=== PATIENT | female | born 1985 | race Caucasian/White ===

== ENCOUNTER 2019-06-16 17:16 | Emergency (ER) | payer BC, SELFPAY ==
[2019-06-16 17:30] VITALS: BP 129/79; PULSE 90; RESP 20; TEMP 37.1; O2SAT 98
--- NOTE | 2019-06-16 18:15 | ED.URI ---
HPI - URI/Sore Throat General Chief Complaint: Upper Respiratory Infection Stated Complaint: Cold/Flu symptoms Time Seen by Provider: 06/16/19 18:17 Source: patient and RN notes reviewed Mode of arrival: ambulatory History of Present Illness HPI Narrative: 33-year-old female presents to [facility] with complaints of cough with nasal drainage and headache starting yesterday. Patient states that she has felt feverish and had chills, reports did not take flu shot this year. Patient states that her cough has been nonproductive and she has not experienced any noted wheezes or any shortness of breath. Patient has clear lungs on auscultation with SAO2 98% on room air. She states that she has not taken any OTC medications for her symptoms. MD elicited complaint: cough, rhinorrhea and other (headache) Pertinent past history: asthma Onset (ago): day(s) (1) Consistency: progressively worsening Severity: moderate Pain scale (0-10): 5 Description of mucous: clear Able to tolerate fluids by mouth: Yes Exacerbating factors: exertion and deep breaths Relieving factors: nothing Associated symptoms: fever (states felt feverish), headache, rhinorrhea, nasal congestion and cough Treatments prior to arrival: none Related Data Home Medications Medication Instructions Recorded Confirmed alprazolam 1 mg PO HS PRN 06/16/19 06/16/19 drospirenone-ethinyl estradiol 1 tablet PO DAILY 06/16/19 06/16/19 [Faith (28)] zolpidem 10 mg PO HS PRN 06/16/19 06/16/19 Allergies Allergy/AdvReac Type Severity Reaction Status Date / Time monosodium glutamate Allergy Severe Anaphylactic Verified 06/16/19 17:36 Shock peppermint Allergy Severe Anaphylactic Verified 06/16/19 17:36 Shock Penicillins Allergy Intermediate Anaphylactic Verified 06/16/19 17:36 Shock METOCLOPRAMIDE HCL Allergy Mild Muscle Uncoded 06/16/19 17:36 Spasms AMOXICILLIN TRIHYDRATE Allergy Unknown Unknown Uncoded 06/16/19 17:36 POTASSIUM CLAVULANATE Allergy Unknown Unknown Uncoded 06/16/19 17:36 Review of Systems Review of Systems: Narrative: CONSTITUTIONAL Reports feverish, chills, or sweats. EYES: Denies visual changes, redness, or discharge. ENT:Poitive rhinorrhea, congestion, no sore throat, or otalgia. CARDIOVASCULAR: Denies chest pain, palpitations, or edema. RESPIRATORY: reports dry cough denies any dyspnea. GASTROINTESTINAL: Denies abdominal pain, nausea, vomiting, or diarrhea. GENITOURINARY: Denies dysuria or hematuria. SKIN: Denies rash or itching. MUSCULOSKELETAL: Denies back pain, joint pain, or myalgia. NEUROLOGIC reports headache, no numbness, or weakness. PSYCHIATRIC: Positive history anxiety or depression. All systems reviewed & are unremarkable except as noted in HPI and below PMFSH Past Medical History Medical History (Updated 06/19/19 @ 13:39 by Pushpa Kenny NP) Anxiety and depression Asthma GERD (gastroesophageal reflux disease) IBS (irritable bowel syndrome) Insomnia Migraines Staph infection Social History Social History (Updated 06/19/19 @ 13:30 by Pushpa Kenny NP) Smoking status: Never smoker Living arrangements: with family Gender identity (if verbalized by the patient): Female Comments At time of signature, agree with nursing past medical, surgical, social and family history. There is no relevant family history pertinent to the presenting complaint Exam Narrative: Exam Narrative: GENERAL: Well-appearing, well-nourished, and in no acute distress. HEAD: Normocephalic, atraumatic. EYES: PERRLA and EOMI. ENT: Nares red, clear rhinorrhea no epistaxis. Mucous membranes moist.TM's normal with good light reflex, throat pink with no exudate or lesions, post nasal drainage noted NECK: Supple.no lymphadenopathy CHEST: Clear to auscultation. No respiratory distress.cough SAO2 98% on room air HEART: Regular rate and rhythm. No murmur heard. Normal peripheral pulses. ABDOMEN: Soft, nontender, nondistended, normal active bowel so
== END 2019-06-16 18:45 | disposition home or self-care (01) ==
PROVIDERS: Emergency Provider Registered Nurse
DX: R05 Cough (principal); J06.9 Acute upper respiratory infection, unspecified; J45.909 Unspecified asthma, uncomplicated; K21.9 Gastro-esophageal reflux disease without esophagitis; F41.9 Anxiety disorder, unspecified; Z86.19 Personal history of other infectious and parasitic diseases
CPT/HCPCS: 87804; 99213; G0463

== ENCOUNTER 2019-11-08 16:53 | Emergency (ER) | payer BC, SELFPAY ==
--- NOTE | 2019-11-08 17:01 | ED.URI ---
HPI - URI/Sore Throat General Chief Complaint: Upper Respiratory Infection Stated Complaint: shortness of breath/chest congestion Time Seen by Provider: 11/08/19 17:09 Source: patient and RN notes reviewed Mode of arrival: ambulatory Limitations: no limitations History of Present Illness HPI Narrative: 34-year-old female with history of asthma presents with concern for wheezing, shortness of breath. Reports also 2-day history of postnasal drainage, nasal congestion for which she is taking Sudafed. She reports she used her albuterol inhaler approximately 1 hour ago. Reports the first time she is needed to use albuterol inhaler recently. Reports she is out of her nebulizer and needs a refill on her albuterol inhaler. She denies fever, sore throat, malaise, body aches. MD elicited complaint: nasal congestion and other (Wheezing) Related Data Home Medications Medication Instructions Recorded Confirmed alprazolam 1 mg PO HS PRN 06/16/19 11/08/19 drospirenone-ethinyl estradiol 1 tablet PO DAILY 06/16/19 11/08/19 [Mickeyvi (28)] zolpidem 10 mg PO HS PRN 06/16/19 11/08/19 Allergies Allergy/AdvReac Type Severity Reaction Status Date / Time monosodium glutamate Allergy Severe Anaphylactic Verified 11/08/19 17:09 Shock peppermint Allergy Severe Anaphylactic Verified 11/08/19 17:09 Shock Penicillins Allergy Intermediate Anaphylactic Verified 11/08/19 17:09 Shock METOCLOPRAMIDE HCL Allergy Mild Muscle Uncoded 06/16/19 17:36 Spasms AMOXICILLIN TRIHYDRATE Allergy Unknown Unknown Uncoded 06/16/19 17:36 POTASSIUM CLAVULANATE Allergy Unknown Unknown Uncoded 06/16/19 17:36 Review of Systems Review of Systems: Narrative: CONSTITUTIONAL: Denies malaise, chills, sweats, or fever. EYES: Denies visual changes, redness, or discharge. ENT: Reports rhinorrhea, congestion. Denies sinus pain, otalgia and sore throat. CARDIOVASCULAR: Denies chest pain, palpitations, or edema. RESPIRATORY: Reports cough, wheezing, dyspnea. GASTROINTESTINAL: Denies abdominal pain, nausea, vomiting, diarrhea SKIN: Denies rash or itching. MUSCULOSKELETAL: Denies myalgia. NEUROLOGIC: Denies headache. All systems reviewed & are unremarkable except as noted in HPI and below PMFSH Past Medical History Medical History (Updated 11/08/19 @ 17:14 by Rajani Haro NP) Anxiety and depression Asthma GERD (gastroesophageal reflux disease) IBS (irritable bowel syndrome) Insomnia Migraines Staph infection Social History Social History (Updated 06/19/19 @ 13:30 by Pushpa Kenny NP) Smoking status: Never smoker Gender identity (if verbalized by the patient): Female Comments At time of signature, agree with nursing past medical, surgical, social and family history. There is no relevant family history pertinent to the presenting complaint Exam Narrative: Exam Narrative: GENERAL: Well-appearing, well-nourished, and in no acute distress. HEAD: Normocephalic EYES: PERRLA, conjunctivae clear ENT: Nares clear, turbinates erythematous, clear discharge. Mucous membranes moist. TM pearly rivas with dull light reflex bilaterally; no tragal tenderness. Oropharynx not erythematous without lesions. Tonsils not enlarged and without exudate, no drooling, no hoarseness, no trismus, uvula midline. NECK: Supple. No lymphadenopathy CHEST: Very mild scattered wheeze in the right lower lung, otherwise clear to auscultation, breath sounds equal. No rhonchi, rales, or stridor. No respiratory distress, speaks in full sentences. HEART: Regular rate and rhythm. No murmur heard. SKIN: Warm, dry, no rash. NEURO: Alert and oriented x3. PSYCH: Normal mood and affect Course Course Emergency Course: Patient is aware of diagnosis, understands and agrees to treatment plan. Anticipatory guidance given. Patient agrees to follow-up as directed and is aware of reasons to seek care at the emergency department. Portions of this record may have been created with voice recogni
[2019-11-08 17:03] VITALS: BP 140/80; PULSE 73; RESP 16; TEMP 36.6; O2SAT 100
== END 2019-11-08 17:20 | disposition home or self-care (01) ==
PROVIDERS: Emergency Provider Nurse Practitioner
DX: J45.901 Unspecified asthma with (acute) exacerbation (principal); F41.8 Other specified anxiety disorders; K21.9 Gastro-esophageal reflux disease without esophagitis; K58.9 Irritable bowel syndrome, unspecified
CPT/HCPCS: 99213; G0463

== ENCOUNTER 2020-02-06 09:28 | Emergency (ER) | payer BC, SELFPAY ==
[2020-02-06 09:38] VITALS: BP 131/76; PULSE 84; RESP 16; TEMP 37.1; O2SAT 99
--- NOTE | 2020-02-06 10:22 | ED.GENADULT ---
HPI - General Adult General Chief complaint: Nausea/Vomiting/Diarrhea Stated complaint: vomitting/unable to eat/PT has IBS Time Seen by Provider: 02/06/20 10:03 Source: patient and RN notes reviewed Mode of arrival: ambulatory Limitations: no limitations History of Present Illness HPI narrative: Patient presents today with a 5-day history of complaints of epigastric pain, radiating up the throat, consistent with previous acid reflux symptoms. Reports history of GERD and irritable bowel syndrome. States she is almost out of her omeprazole and is requesting a prescription for more.States that prior to onset of symptoms she had several alcoholic drinks at ladies night , which exacerbated her symptoms. Denies fever, vomiting, diarrhea, constipation, lower abdominal pain. She does report some nausea intermittently. History of ulcers in the past. Related Data Home Medications Medication Instructions Recorded Confirmed alprazolam 1 mg PO HS PRN 06/16/19 02/06/20 drospirenone-ethinyl estradiol 1 tablet PO DAILY 06/16/19 02/06/20 [Gianvi (28)] zolpidem 10 mg PO HS PRN 06/16/19 02/06/20 Allergies Allergy/AdvReac Type Severity Reaction Status Date / Time monosodium glutamate Allergy Severe Anaphylactic Verified 02/06/20 09:56 Shock peppermint Allergy Severe Anaphylactic Verified 02/06/20 09:56 Shock Penicillins Allergy Intermediate Anaphylactic Verified 02/06/20 09:56 Shock METOCLOPRAMIDE HCL Allergy Mild Muscle Uncoded 06/16/19 17:36 Spasms AMOXICILLIN TRIHYDRATE Allergy Unknown Unknown Uncoded 06/16/19 17:36 POTASSIUM CLAVULANATE Allergy Unknown Unknown Uncoded 06/16/19 17:36 Review of Systems Review of Systems: Narrative: CONSTITUTIONAL: Denies body aches, fever, chills, or sweats. EYES: Denies visual changes, redness, or discharge. ENT: Denies rhinorrhea, congestion, sore throat, or otalgia. CARDIOVASCULAR: Denies chest pain, palpitations, or edema. RESPIRATORY: Denies cough or dyspnea. GASTROINTESTINAL: Denies abdominal pain, vomiting, or diarrhea. +Nausea, epigastric pain GENITOURINARY: Denies dysuria or hematuria. SKIN: Denies rash, itching, or wounds. MUSCULOSKELETAL: Denies back pain, joint pain, or myalgia. NEUROLOGIC: Denies headache, numbness, tingling, or weakness. PSYCH: Denies depression or anxiety. [facility] Past Medical History Medical History (Updated 02/06/20 @ 10:24 by Evy Enrique, TRIAL [employer] JUSTICE, ) Anxiety and depression Asthma GERD (gastroesophageal reflux disease) IBS (irritable bowel syndrome) Insomnia Migraines Staph infection Social History Social History (Updated 06/19/19 @ 13:30 by Pushpa Kenny NP) Smoking status: Never smoker Gender identity (if verbalized by the patient): Female Exam Narrative: Exam Narrative: GENERAL: Well-appearing, well-nourished, and in no acute distress. HEAD: Normocephalic, atraumatic. EYES: EOMI. No redness or drainage. Conjunctivae normal. ENT: Mucous membranes pink and moist. NECK: Normal AROM. Supple. No lymphadenopathy. CHEST: No respiratory distress. Clear to auscultation. HEART: Regular rate and rhythm. No murmur appreciated. Normal peripheral pulses. ABDOMEN: Soft, nondistended, normal active bowel sounds. +Epigastric tenderness MUSCULOSKELETAL: No bony tenderness. EXTREMITIES: Normal range of motion. No edema. SKIN: Warm, dry, no rash. Capillary refill normal. Normal skin turgor. NEURO: No focal deficits. Alert and oriented x3. Gait steady. PSYCH: Normal affect. No signs of depression or anxiety. Course Vital Signs Vital signs: Vital Signs Temperature 98.8 F 02/06/20 09:38 Pulse Rate 84 02/06/20 09:38 Respiratory Rate 16 02/06/20 09:38 Blood Pressure 131/76 02/06/20 09:38 Pulse Oximetry 99 02/06/20 09:38 Temperature 98.8 F 02/06/20 09:38 Pulse Rate 84 02/06/20 09:38 Respiratory Rate 16 02/06/20 09:38 Blood Pressure 131/76 02/06/20 09:38 Pulse Oximetry 99 02/06/20 09:3
== END 2020-02-06 10:29 | disposition home or self-care (01) ==
PROVIDERS: Emergency Provider Nurse Practitioner
DX: K21.9 Gastro-esophageal reflux disease without esophagitis (principal); Z86.19 Personal history of other infectious and parasitic diseases; F41.9 Anxiety disorder, unspecified
CPT/HCPCS: 99213; G0463

== ENCOUNTER 2020-03-06 13:58 | Emergency (ER) | payer BC, SELFPAY ==
[2020-03-06 14:06] VITALS: BP 138/88; PULSE 79; RESP 16; TEMP 36.9; O2SAT 98
--- NOTE | 2020-03-06 14:16 | ED.URI ---
HPI - URI/Sore Throat General Chief Complaint: Upper Respiratory Infection Stated Complaint: body aches/cough/chest congestion Time Seen by Provider: 03/06/20 14:17 Source: patient and family History of Present Illness HPI Narrative: Patient presents with a cough for the past 2 days. Patient states she has history of asthma and bronchitis. Patient states she has generalized body aches. No shortness of breath no chest pain. Patient reports using her inhaler prior to arrival. MD elicited complaint: cough Related Data Home Medications Medication Instructions Recorded Confirmed drospirenone-ethinyl estradiol 1 tablet PO DAILY 06/16/19 02/06/20 [Gianvi (28)] alprazolam 2 mg PO HS 03/06/20 03/06/20 fluoxetine [Prozac] 10 mg PO DAILY 03/06/20 03/06/20 Allergies Allergy/AdvReac Type Severity Reaction Status Date / Time monosodium glutamate Allergy Severe Anaphylactic Verified 03/06/20 14:20 Shock peppermint Allergy Severe Anaphylactic Verified 03/06/20 14:20 Shock Penicillins Allergy Intermediate Anaphylactic Verified 03/06/20 14:20 Shock METOCLOPRAMIDE HCL Allergy Mild Muscle Uncoded 06/16/19 17:36 Spasms AMOXICILLIN TRIHYDRATE Allergy Unknown Unknown Uncoded 06/16/19 17:36 POTASSIUM CLAVULANATE Allergy Unknown Unknown Uncoded 06/16/19 17:36 Review of Systems Review of Systems: Narrative: CONSTITUTIONAL: Denies fever, chills, or sweats. EYES: Denies visual changes, redness, or discharge. ENT: Denies rhinorrhea, congestion, sore throat, or otalgia. CARDIOVASCULAR: Denies chest pain, palpitations, or edema. RESPIRATORY: Denies cough or dyspnea. GASTROINTESTINAL: Denies abdominal pain, nausea, vomiting, or diarrhea. GENITOURINARY: Denies dysuria or hematuria. SKIN: Denies rash or itching. MUSCULOSKELETAL: Denies back pain, joint pain, or myalgia. NEUROLOGIC: Denies headache, numbness, or weakness. PSYCHIATRIC: Denies anxiety or depression. [facility] Past Medical History Medical History (Updated 03/06/20 @ 14:24 by TEODORO Connor) Anxiety and depression Asthma GERD (gastroesophageal reflux disease) IBS (irritable bowel syndrome) Insomnia Migraines Staph infection Social History Social History (Updated 06/19/19 @ 13:30 by Pushap Kenny NP) Smoking status: Never smoker Gender identity (if verbalized by the patient): Female Comments At time of signature, agree with nursing past medical, surgical, social and family history. There is no relevant family history pertinent to the presenting complaint Exam Narrative: Exam Narrative: GENERAL: Well-appearing, well-nourished, and in no acute distress. HEAD: Normocephalic, atraumatic. EYES: PERRLA and EOMI. ENT: Nares clear, no rhinorrhea or epistaxis. Mucous membranes moist. NECK: Supple. CHEST: Clear to auscultation. No respiratory distress. HEART: Regular rate and rhythm. No murmur heard. Normal peripheral pulses. ABDOMEN: Soft, nontender, nondistended, normal active bowel sounds. EXTREMITIES: Normal range of motion. No edema. SKIN: Warm, dry, no rash. NEURO: No focal deficits. Alert and oriented x3. [place] Coma Scale Eye Opening: Spontaneous 4 [place] Coma Scale Motor: Obeys Commands 6 [place] Coma Scale Verbal: Oriented 5 Joe Coma Scale Total 15 Course Vital Signs Vital signs: Vital Signs Temperature 36.9 C 03/06/20 14:06 Pulse Rate 79 03/06/20 14:06 Respiratory Rate 16 03/06/20 14:06 Blood Pressure 138/88 03/06/20 14:06 Pulse Oximetry 98 03/06/20 14:06 Temperature 36.9 C 03/06/20 14:23 Pulse Rate 79 03/06/20 14:23 Respiratory Rate 16 03/06/20 14:23 Blood Pressure 138/88 03/06/20 14:23 Pulse Oximetry 98 03/06/20 14:23 Please MAIA schedule a followup visit with your personal physician for further evaluation and treatment. Including recheck and discussion of your blood pressure. If your symptoms persist, change or worsen significantly before you can contact your personal physician
[2020-03-06 14:23] VITALS: BP 138/88; PULSE 79; RESP 16; TEMP 36.9; O2SAT 98
== END 2020-03-06 14:27 | disposition home or self-care (01) ==
PROVIDERS: Emergency Provider Nurse Practitioner Family
DX: J40 Bronchitis, not specified as acute or chronic (principal); K21.9 Gastro-esophageal reflux disease without esophagitis; Z86.19 Personal history of other infectious and parasitic diseases; F41.9 Anxiety disorder, unspecified; F32.9 Major depressive disorder, single episode, unspecified; J45.909 Unspecified asthma, uncomplicated
CPT/HCPCS: 99213; G0463

== ENCOUNTER 2020-05-30 12:38 | Emergency (ER) | payer BC, SELFPAY ==
--- NOTE | 2020-05-30 12:42 | ED.GENADULT ---
HPI - General Adult General Chief complaint: Upper Respiratory Infection Stated complaint: fever aches no appetite congest Time Seen by Provider: 05/30/20 12:42 Source: patient Mode of arrival: ambulatory Limitations: no limitations History of Present Illness HPI narrative: 34-year-old female patient presents to the [facility] with complaints of cold symptoms that started 2 days ago. Patient states she has had a fever as high as 100.2, body aches, chills, a slight sore throat that has resolved today. Patient also complaining of a cough and chest congestion as well as a runny nose. Patient denies getting a flu shot this year. Patient denies being around anybody with Covid that she is aware of. Patient states she is been taking [id number] DayQuil, NyQuil. Patient does have a history of asthma which she states that she has been using her inhaler with. Related Data Home Medications Medication Instructions Recorded Confirmed drospirenone-ethinyl estradiol 1 tablet PO DAILY 06/16/19 02/06/20 [Gianvi (28)] alprazolam 2 mg PO HS 03/06/20 03/06/20 fluoxetine [Prozac] 10 mg PO DAILY 03/06/20 03/06/20 Allergies Allergy/AdvReac Type Severity Reaction Status Date / Time monosodium glutamate Allergy Severe Anaphylactic Verified 05/30/20 13:21 Shock peppermint Allergy Severe Anaphylactic Verified 05/30/20 13:21 Shock Penicillins Allergy Intermediate Anaphylactic Verified 05/30/20 13:21 Shock METOCLOPRAMIDE HCL Allergy Mild Muscle Uncoded 06/16/19 17:36 Spasms AMOXICILLIN TRIHYDRATE Allergy Unknown Unknown Uncoded 06/16/19 17:36 POTASSIUM CLAVULANATE Allergy Unknown Unknown Uncoded 06/16/19 17:36 Review of Systems Review of Systems: Narrative: CONSTITUTIONAL: Positive fever, chills, body aches denies sweats. EYES: Denies visual changes, redness, or discharge. ENT: Denies rhinorrhea, positive congestion, sore throat, denies otalgia. CARDIOVASCULAR: Denies chest pain, palpitations, or edema. RESPIRATORY: Positive cough with slight dyspnea. GASTROINTESTINAL: Denies abdominal pain, nausea, vomiting, or diarrhea. GENITOURINARY: Denies dysuria or hematuria. SKIN: Denies rash or itching. MUSCULOSKELETAL: Denies back pain, joint pain, or myalgia. NEUROLOGIC: Denies headache, numbness, or weakness. PSYCHIATRIC: Denies anxiety or depression. [facility] Past Medical History Medical History Anxiety and depression Asthma GERD (gastroesophageal reflux disease) IBS (irritable bowel syndrome) Insomnia Migraines Staph infection Social History Social History Smoking status: Never smoker Gender identity (if verbalized by the patient): Female Comments At the time of my signature I agree with nursing past medical history, surgical, social, and family history. There is no relevant family history pertinent to the presenting complaint. Exam Narrative: Exam Narrative: GENERAL: ill-appearing, well-nourished, and in no acute distress. HEAD: Normocephalic, atraumatic. EYES: PERRLA and EOMI. ENT: Nares with erythema and edema noted bilateral, no rhinorrhea or epistaxis. Mucous membranes moist. Posterior pharynx with no erythema, tonsil management, exudates or lesions present. Bilateral TMs are clear no erythema or foreign bodies in the canal. NECK: Supple. No lymphadenopathy CHEST: Clear to auscultation. No respiratory distress. Patient able talk in clear complete sentences. Patient does have coughing noted during exam. HEART: Regular rate and rhythm. No murmur heard. Normal peripheral pulses. ABDOMEN: Soft, nontender, nondistended, normal active bowel sounds. EXTREMITIES: Normal range of motion. No edema. SKIN: Warm, dry, no rash. NEURO: No focal deficits. Alert and oriented x3. Course Vital Signs Vital signs: Vital Signs Temperature 36.8 C 05/30/20 12:55 Pulse Rate 88 05/30/20 12:55 Respiratory R
[2020-05-30 12:55] VITALS: BP 135/75; PULSE 88; RESP 20; TEMP 36.8; O2SAT 98
[2020-05-31 18:46] LABS: SARS-CoV-2 RNA PCR Positive
== END 2020-05-30 13:25 | disposition home or self-care (01) ==
PROVIDERS: Emergency Provider Nurse Practitioner Family
DX: U07.1 COVID-19 (principal); J45.909 Unspecified asthma, uncomplicated; K21.9 Gastro-esophageal reflux disease without esophagitis; Z86.19 Personal history of other infectious and parasitic diseases; F41.9 Anxiety disorder, unspecified; F32.9 Major depressive disorder, single episode, unspecified
CPT/HCPCS: 87804; 99213; C9803; G0463; U0003; U0005

== ENCOUNTER 2020-08-10 15:42 | Emergency (ER) | payer MEDICAID, SELFPAY ==
[2020-08-10 16:20] VITALS: BP 132/89; PULSE 96; RESP 18; TEMP 36.6; O2SAT 97
--- NOTE | 2020-08-10 16:41 | ED.GENADULT ---
HPI - General Adult General Chief complaint: Urogenital-Female Stated complaint: itchy burning milky discharge Time Seen by Provider: 08/10/20 16:41 Source: patient and RN notes reviewed Mode of arrival: ambulatory Limitations: no limitations History of Present Illness HPI narrative: 35-year-old female presents with vaginal irritation, thick milky and white discharge for the past 3 weeks. Brooklynn reports continuous white discharge after treatment for yeast infection and urinary tract infection, increasing symptoms over the past 4 days. No treatment in over 30 days. No significant pelvic pain. No dysuria. Denies fever or chills. Brooklynn has concerns for STDs. History of STDs Trichomonas and Chlamydia. No new partners. Sexually active. Denies unprotected intercourse with multiple partners. Does not douche. Exacerbating factors consist of sexual activity. Denies hematuria or vaginal bleeding. Denies being , LMP 1 week ago, control. No flank pain. Denies nausea, vomiting, and abdominal pain.? Tolerating liquids well.? Remains active. The patient reports she was diagnosed with COVID-19 May 30, 2020, no new symptoms. The patient reports she is not waiting for the results of a COVID-19 lab test. The patient reports she do not have weakness or fatigue. The patient reports she do not have a new or worsening cough or shortness of breath. Denies chest pain. The patient reports she do not have any rhinorrhea, congestion, sore throat, loss of taste or smell, and diarrhea. Denies recent traveling. Denies concerns for COVID-19 or exposures been home with limited outdoor exposure except for essential household needs, work, and return home. At this time, patient is not suspected of having COVID-19. Some parts of this dictation were generated by voice recognition software and may contain typographical and/or grammatical inaccuracies. Related Data Home Medications Medication Instructions Recorded Confirmed drospirenone-ethinyl estradiol 1 tablet PO DAILY 06/16/19 08/10/20 [Faith (28)] fluoxetine 40 mg PO DAILY 05/30/20 08/10/20 Xanax 3 mg PO DAILY 08/10/20 08/10/20 Allergies Allergy/AdvReac Type Severity Reaction Status Date / Time monosodium glutamate Allergy Severe Anaphylactic Verified 08/10/20 16:27 Shock peppermint Allergy Severe Anaphylactic Verified 08/10/20 16:27 Shock Penicillins Allergy Intermediate Anaphylactic Verified 08/10/20 16:27 Shock METOCLOPRAMIDE HCL Allergy Mild Muscle Uncoded 06/16/19 17:36 Spasms AMOXICILLIN TRIHYDRATE Allergy Unknown Unknown Uncoded 06/16/19 17:36 POTASSIUM CLAVULANATE Allergy Unknown Unknown Uncoded 06/16/19 17:36 Review of Systems Review of Systems: Narrative: CONSTITUTIONAL: Denies fever, chills, sweats. EYES: Denies visual changes, redness, discharge. ENT: Denies rhinorrhea, congestion, sore throat, otalgia. CARDIOVASCULAR: Denies chest pain, palpitations, edema. RESPIRATORY: Denies dyspnea, wheezing, cough. GASTROINTESTINAL: Denies abdominal pain, nausea, vomiting, diarrhea. GENITOURINARY: Complains of vaginal irritation, abnormal discharge. Denies dysuria (burning, frequent, urgency), hematuria. SKIN: Denies rash or itching. MUSCULOSKELETAL: Denies acute back pain, joint pain, or myalgia. NEUROLOGIC: Denies numbness or focal weakness. PSYCHIATRIC: Denies anxiety or depression. All systems reviewed & are unremarkable except as noted in HPI and below. [facility] Past Medical History Medical History (Updated 08/11/20 @ 00:00 by [facility]) Anxiety and depression Asthma GERD (gastroesophageal reflux disease) IBS (irritable bowel syndrome) Insomnia Migraines Staph infection Surgical History Surgical History (Updated 08/10/20 @ 16:56 by TEODORO Cruz) No significant past surgical history Family History Family History (Updated 08/10/20 @ 16:56 by TEODORO Cruz) Father Acute myocardial infarction
--- NOTE | 2020-08-10 16:58 | PC.NURSE ---
NO UC ORDERED PER PROVIDER
== END 2020-08-10 17:20 | disposition home or self-care (01) ==
PROVIDERS: Emergency Provider Nurse Practitioner Family
DX: N76.0 Acute vaginitis (principal); Z20.2 Contact with and (suspected) exposure to infections with a predominantly sexual mode of transmission; F41.9 Anxiety disorder, unspecified; F32.9 Major depressive disorder, single episode, unspecified; J45.909 Unspecified asthma, uncomplicated; K21.9 Gastro-esophageal reflux disease without esophagitis
CPT/HCPCS: 81003; 87491; 87591; 87661; 99214; G0463

== ENCOUNTER 2020-11-14 14:35 | Emergency (ER) | payer OTHER, SELFPAY ==
[2020-11-14 14:42] VITALS: BP 128/87; PULSE 110; RESP 18; TEMP 36.3; O2SAT 99
--- NOTE | 2020-11-14 18:31 | ED.FEMALEGU ---
HPI - Female Genitourinary General Chief complaint: Urogenital-Female Stated complaint: Possible bacteria infection Time Seen by Provider: 11/14/20 14:57 Source: patient and RN notes reviewed Mode of arrival: ambulatory Limitations: no limitations History of Present Illness HPI Narrative: Patient presents today complaining of a 3-day history of white vaginal discharge, red, itching and burning external genitalia. Denies concerns for sexually transmitted infections. She has tried no [id number] interventions prior to arrival. MD elicited complaint: vaginal discharge and genital itching Related Data Home Medications Medication Instructions Recorded Confirmed drospirenone-ethinyl estradiol 1 tablet PO DAILY 06/16/19 08/10/20 [Gianvi (28)] fluoxetine 40 mg PO DAILY 05/30/20 08/10/20 Xanax 3 mg PO DAILY 08/10/20 08/10/20 Allergies Allergy/AdvReac Type Severity Reaction Status Date / Time monosodium glutamate Allergy Severe Anaphylactic Verified 08/10/20 16:27 Shock peppermint Allergy Severe Anaphylactic Verified 08/10/20 16:27 Shock Penicillins Allergy Intermediate Anaphylactic Verified 08/10/20 16:27 Shock METOCLOPRAMIDE HCL Allergy Mild Muscle Uncoded 06/16/19 17:36 Spasms AMOXICILLIN TRIHYDRATE Allergy Unknown Unknown Uncoded 06/16/19 17:36 POTASSIUM CLAVULANATE Allergy Unknown Unknown Uncoded 06/16/19 17:36 Review of Systems Review of Systems: Narrative: CONSTITUTIONAL: Denies body aches, fever, chills, or sweats. EYES: Denies visual changes, redness, or discharge. ENT: Denies rhinorrhea, congestion, sore throat, or otalgia. CARDIOVASCULAR: Denies chest pain, palpitations, or edema. RESPIRATORY: Denies cough or dyspnea. GASTROINTESTINAL: Denies abdominal pain, nausea, vomiting, or diarrhea. GENITOURINARY: Denies dysuria or hematuria.+ Vaginal discharge, genital redness, itching, and burning SKIN: Denies rash, itching, or wounds. MUSCULOSKELETAL: Denies back pain, joint pain, or myalgia. NEUROLOGIC: Denies headache, numbness, tingling, or weakness. PSYCH: Denies depression or anxiety. [facility] Past Medical History Medical History (Updated 11/14/20 @ 15:14 by Evy Enrique, GOLF CADDIE, BC) Anxiety and depression Asthma GERD (gastroesophageal reflux disease) IBS (irritable bowel syndrome) Insomnia Migraines Staph infection Surgical History Surgical History (Updated 08/10/20 @ 16:56 by TEODORO Cruz) No significant past surgical history Family History Family History (Updated 08/10/20 @ 16:56 by TEODORO Cruz) Father Acute myocardial infarction Heart disease Mother Diabetes mellitus Social History Social History (Updated 08/10/20 @ 16:57 by TEODORO Cruz) Smoking status: Never smoker Tobacco type: cigarettes Second hand tobacco smoke exposure: No Alcohol intake: current Substance use: never Gender identity (if verbalized by the patient): Female Comments At time of signature, I have reviewed and agree with nursing past medical, surgical, social and family history unless otherwise noted. Please see nursing chart for further information. There is no relevant family history pertinent to the presenting complaint Exam Narrative: Exam Narrative: GENERAL: Well-appearing, well-nourished, and in no acute distress. HEAD: Normocephalic, atraumatic. EYES: EOMI. No redness or drainage. Conjunctivae normal. ENT: Mucous membranes pink and moist. NECK: Normal AROM. CHEST: No respiratory distress. : Thin white vaginal discharge. Erythematous and mildly swollen external genitalia and vaginal chaney. Cervix normal. MUSCULOSKELETAL: No bony tenderness. EXTREMITIES: Normal range of motion. No edema. SKIN: Warm, dry, no rash. Capillary refill normal. Normal skin turgor. NEURO: No focal deficits. Alert and oriented x3. Gait steady. PSYCH: Normal affect. No signs of depression or anxiety. Course Course Emergency Course: Patient wi
== END 2020-11-14 15:21 | disposition home or self-care (01) ==
PROVIDERS: Emergency Provider Nurse Practitioner
DX: N76.0 Acute vaginitis (principal); J45.909 Unspecified asthma, uncomplicated; K21.9 Gastro-esophageal reflux disease without esophagitis; F41.9 Anxiety disorder, unspecified; F32.9 Major depressive disorder, single episode, unspecified
CPT/HCPCS: 87070; 99213; G0463

== ENCOUNTER 2020-12-06 13:48 | Emergency (ER) | payer OTHER, SELFPAY ==
--- NOTE | 2020-12-06 13:54 | ED.SKABFB ---
HPI - Skin/Abscess/Foreign Bdy General Chief complaint: Skin/Abscess/Foreign Body Stated complaint: lots of bites Time Seen by Provider: 12/06/20 13:52 Source: patient and RN notes reviewed History of Present Illness HPI narrative: Patient is a 35-year-old female who presents the urgent care with complaints of bug bites to the right side. Patient states that she always gets a bitten fairly bad by mosquitoes and they went on vacation recently, staying in an RV and camping. Patient states that she was trying to contain the itch at home and is unable to control. Patient has been taking Claritin and Benadryl. No other acute complaints. No acute distress noted. Patient read the plan of care. Some parts of this dictation were generated by voice recognition software and may contain typographical and/or grammatical inaccuracies. Related Data Home Medications Medication Instructions Recorded Confirmed drospirenone-ethinyl estradiol 1 tablet PO DAILY 06/16/19 12/06/20 [Faith (28)] fluoxetine 40 mg PO DAILY 05/30/20 12/06/20 Xanax 3 mg PO DAILY 08/10/20 12/06/20 Allergies Allergy/AdvReac Type Severity Reaction Status Date / Time monosodium glutamate Allergy Severe Anaphylactic Verified 08/10/20 16:27 Shock peppermint Allergy Severe Anaphylactic Verified 08/10/20 16:27 Shock Penicillins Allergy Intermediate Anaphylactic Verified 08/10/20 16:27 Shock METOCLOPRAMIDE HCL Allergy Mild Muscle Uncoded 06/16/19 17:36 Spasms AMOXICILLIN TRIHYDRATE Allergy Unknown Unknown Uncoded 06/16/19 17:36 POTASSIUM CLAVULANATE Allergy Unknown Unknown Uncoded 06/16/19 17:36 Review of Systems Review of Systems: Narrative: CONSTITUTIONAL: Denies fever, chills, or sweats. EYES: Denies visual changes, redness, or discharge. ENT: Denies rhinorrhea, congestion, sore throat, or otalgia. CARDIOVASCULAR: Denies chest pain, palpitations, or edema. RESPIRATORY: Denies cough or dyspnea. GASTROINTESTINAL: Denies abdominal pain, nausea, vomiting, or diarrhea. GENITOURINARY: Denies dysuria or hematuria. SKIN: Reports of multiple mosquito bites to the right arm, right leg and lower right back MUSCULOSKELETAL: Denies back pain, joint pain, or myalgia. NEUROLOGIC: Denies headache, numbness, or weakness. All other systems reviewed are negative, except as documented in HPI. [facility] Past Medical History Medical History (Updated 12/06/20 @ 14:03 by TEODORO Avina) Anxiety and depression Asthma GERD (gastroesophageal reflux disease) IBS (irritable bowel syndrome) Insomnia Migraines Staph infection Surgical History Surgical History (Updated 08/10/20 @ 16:56 by TEODORO Cruz) No significant past surgical history Family History Family History (Updated 08/10/20 @ 16:56 by TEODORO Cruz) Father Acute myocardial infarction Heart disease Mother Diabetes mellitus Social History Social History (Updated 08/10/20 @ 16:57 by TEODORO Cruz) Smoking status: Never smoker Tobacco type: cigarettes Second hand tobacco smoke exposure: No Alcohol intake: current Substance use: never Gender identity (if verbalized by the patient): Female Comments At the time of my signature, I reviewed and agree with the nursing past medical, surgical, social, and family history. There is no relevant family history pertinent to the patient complaint. Exam Narrative: Exam Narrative: GENERAL: This is a well-nourished, well-developed patient, in no apparent distress. HEAD: normocephalic, atraumatic. EYES: PERRL. Sclera clear/white. Vision is grossly intact. EARS: External ears normal NOSE: External nose normal with no obvious nasal discharge, nares without redness, no rhinorrhea. THROAT: Mucous membranes moist NECK: Neck supple CARDIOVASCULAR: Regular rate and rhythm without murmurs, gallops, or rubs. RESPIRATORY: Clear to auscultation. Breath sounds equal bilaterally. No wheezes, rales, or rhonchi. SKIN
[2020-12-06 13:55] VITALS: BP 129/90; PULSE 100; RESP 18; TEMP 36.6; O2SAT 100
== END 2020-12-06 14:06 | disposition home or self-care (01) ==
PROVIDERS: Emergency Provider Nurse Practitioner Family
DX: S40.861A Insect bite (nonvenomous) of right upper arm, initial encounter (principal); S80.861A Insect bite (nonvenomous), right lower leg, initial encounter; S30.860A Insect bite (nonvenomous) of lower back and pelvis, initial encounter; W57.XXXA Bitten or stung by nonvenomous insect and other nonvenomous arthropods, initial encounter; F41.9 Anxiety disorder, unspecified; F32.9 Major depressive disorder, single episode, unspecified; J45.909 Unspecified asthma, uncomplicated; K21.9 Gastro-esophageal reflux disease without esophagitis
CPT/HCPCS: 99213; G0463

== ENCOUNTER 2021-03-28 13:22 | Emergency (ER) | payer OTHER, SELFPAY ==
[2021-03-28 13:28] VITALS: BP 131/91; PULSE 104; RESP 16; TEMP 36.6; O2SAT 100
--- NOTE | 2021-03-28 14:00 | ED.UPPEXIN ---
HPI - Extremity Injury (Upper) General Chief Complaint: Extremity Injury, Upper Stated Complaint: flare up tendonitis wrists Source: patient and RN notes reviewed History of Present Illness HPI narrative: This is a 22-pjjd-sm[age]-year-old male that presented to urgent care with complaints of burning pain that radiates from her hands to her wrist to her shoulder. Patient has a history of tendinitis, she notes that her tendinitis especially as for 2 weeks. This day her tendinitis has last for 1 month she has taken ibuprofen, naproxen and Flexeril in the past. Patient notes that while painting her sister's home and cleaning she developed tendinitis. She does wear compression gloves often to relieve her pain. The patient denies SOB, CP, palpitation, extremity numbness, full range of motion with pain to wrist, no neurovascular deficiencies noted lightheadedness, dizziness, constipation, diarrhea, chills, or fever. MD complaint: injury to: wrist Related Data Home Medications Medication Instructions Recorded Confirmed fluoxetine 20 mg PO BID 05/30/20 03/28/21 albuterol 90 mcg INHALATION Q4H PRN 03/28/21 03/28/21 alprazolam 1 mg PO TID 03/28/21 03/28/21 omeprazole 20 mg PO DAILY 03/28/21 03/28/21 Allergies Allergy/AdvReac Type Severity Reaction Status Date / Time monosodium glutamate Allergy Severe Anaphylactic Verified 03/28/21 13:40 Shock peppermint Allergy Severe Anaphylactic Verified 03/28/21 13:40 Shock Penicillins Allergy Intermediate Anaphylactic Verified 03/28/21 13:40 Shock eucalyptus Allergy Anaphylactic Verified 03/28/21 13:40 Shock METOCLOPRAMIDE HCL Allergy Mild Muscle Uncoded 06/16/19 17:36 Spasms AMOXICILLIN TRIHYDRATE Allergy Unknown Unknown Uncoded 06/16/19 17:36 Review of Systems Review of Systems: A 14 organ system Review of Systems was performed and pertinent positives included in the HPI, otherwise remaining ROS is negative. [facility] Past Medical History Medical History Anxiety and depression Asthma GERD (gastroesophageal reflux disease) IBS (irritable bowel syndrome) Insomnia Migraines Staph infection Surgical History Surgical History No significant past surgical history Family History Family History Father Acute myocardial infarction Heart disease Mother Diabetes mellitus Social History Social History Smoking status: Never smoker Tobacco type: cigarettes Second hand tobacco smoke exposure: No Alcohol intake: current Substance use: never Gender identity (if verbalized by the patient): Female Sexual Orientation (if Verbalized by the Patient): Straight or Heterosexual Exam Narrative: GENERAL: This is a well-nourished, well-developed patient, in no apparent distress. HEAD: normocephalic, atraumatic. EYES: PERRL. Sclera clear/white. Vision is grossly intact. EARS: External ears normal, auditory canals clear and without drainage, TMs normal without perforation. Hearing grossly intact. NOSE: External nose normal with no obvious nasal discharge, nares without redness, no rhinorrhea. THROAT: Mucous membranes moist, posterior pharynx clear. NECK: Neck supple, non-tender without lymphadenopathy, masses or thyromegaly. CARDIOVASCULAR: Regular rate and rhythm without murmurs, gallops, or rubs. RESPIRATORY: Clear to auscultation. Breath sounds equal bilaterally. No wheezes, rales, or rhonchi. GASTROINTESTINAL: Abdomen soft, non-tender, nondistended. Bowel sounds are active. No hepato-splenomegaly, or palpable masses. No guarding. SKIN: warm, intact with no suspicious lesions or rash, good texture and turgor. NEURO: awake, alert, and oriented to person, place and time. There were no obvious focal neurologic abnormalities. Steady gait EXTREM
== END 2021-03-28 14:14 | disposition home or self-care (01) ==
PROVIDERS: Emergency Provider Nurse Practitioner
DX: M77.8 Other enthesopathies, not elsewhere classified (principal); J45.909 Unspecified asthma, uncomplicated; K21.9 Gastro-esophageal reflux disease without esophagitis; Z86.19 Personal history of other infectious and parasitic diseases; F41.9 Anxiety disorder, unspecified; F32.A Depression, unspecified
CPT/HCPCS: 99213; G0463

== ENCOUNTER 2021-04-09 18:21 | Emergency (ER) | payer OTHER, SELFPAY ==
--- NOTE | 2021-04-09 18:24 | ED.UPPEXIN ---
HPI - Extremity Injury (Upper) General Chief Complaint: Extremity Injury, Upper Stated Complaint: tendinitis and lump under left arm Time Seen by Provider: 04/09/21 18:25 Source: patient and RN notes reviewed History of Present Illness HPI narrative: Patient is a 35-year-old female who presents the urgent care with complaints of chronic bilateral wrist tendinitis and a lump under her left arm . Patient states that she noticed the lump yesterday after shaving. States that she took a leftover clindamycin and the pain went away . Denies of any drainage from the area or fever. Patient is requesting Vicodin for her tendinitis. States that she cuts the 5 mg Vicodin in half and it helps with the pain . Patient states that she only had that one Vicodin left and is requesting refills for every 4 hours. Patient has been using lidocaine patches to her wrist. Patient is also taken the Flexeril at times and completed the steroid regimen from her visit on March 28. No other acute complaints. No acute distress noted. Patient aware of the plan of care. Some parts of this dictation were generated by voice recognition software and may contain typographical and/or grammatical inaccuracies. Related Data Home Medications Medication Instructions Recorded Confirmed fluoxetine 20 mg PO BID 05/30/20 04/09/21 albuterol 90 mcg INHALATION Q4H PRN 03/28/21 04/09/21 alprazolam 1 mg PO TID 03/28/21 04/09/21 omeprazole 20 mg PO DAILY 03/28/21 04/09/21 Allergies Allergy/AdvReac Type Severity Reaction Status Date / Time monosodium glutamate Allergy Severe Anaphylactic Verified 04/09/21 18:25 Shock peppermint Allergy Severe Anaphylactic Verified 04/09/21 18:25 Shock Penicillins Allergy Intermediate Anaphylactic Verified 04/09/21 18:25 Shock eucalyptus Allergy Anaphylactic Verified 04/09/21 18:25 Shock METOCLOPRAMIDE HCL Allergy Mild Muscle Uncoded 04/09/21 18:25 Spasms AMOXICILLIN TRIHYDRATE Allergy Unknown Unknown Uncoded 04/09/21 18:25 Review of Systems Review of Systems: CONSTITUTIONAL: Denies fever, chills, or sweats. EYES: Denies visual changes, redness, or discharge. ENT: Denies rhinorrhea, congestion, sore throat, or otalgia. CARDIOVASCULAR: Denies chest pain, palpitations, or edema. RESPIRATORY: Denies cough or dyspnea. GASTROINTESTINAL: Denies abdominal pain, nausea, vomiting, or diarrhea. GENITOURINARY: Denies dysuria or hematuria. SKIN: Reports of a lump to the left armpit MUSCULOSKELETAL: Reports of bilateral wrist tendinitis NEUROLOGIC: Denies headache, numbness, or weakness. All other systems reviewed are negative, except as documented in HPI. [facility] Past Medical History Medical History Anxiety and depression Asthma GERD (gastroesophageal reflux disease) IBS (irritable bowel syndrome) Insomnia Migraines Staph infection Surgical History Surgical History No significant past surgical history Family History Family History Father Acute myocardial infarction Heart disease Mother Diabetes mellitus Social History Social History Smoking status: Never smoker Tobacco type: cigarettes Second hand tobacco smoke exposure: No Alcohol intake: current Substance use: never Gender identity (if verbalized by the patient): Female Sexual Orientation (if Verbalized by the Patient): Straight or Heterosexual Comments At the time of my signature, I reviewed and agree with the nursing past medical, surgical, social, and family history. There is no relevant family history pertinent to the patient complaint. Exam Narrative: GENERAL: This is a well-nourished, well-developed patient, in no apparent distress. HEAD: normocephalic, atraumatic. EYES: PERRL. Sclera clear/white
[2021-04-09 18:30] VITALS: BP 136/103; PULSE 118; RESP 18; TEMP 37.3; O2SAT 98
[2021-04-09 18:40] VITALS: BP 136/103; PULSE 118; RESP 18; TEMP 37.3; O2SAT 98
== END 2021-04-09 19:10 | disposition home or self-care (01) ==
PROVIDERS: Emergency Provider Nurse Practitioner Family
DX: M77.8 Other enthesopathies, not elsewhere classified (principal); L73.9 Follicular disorder, unspecified
CPT/HCPCS: 99213; G0463

== ENCOUNTER 2021-08-27 13:36 | Emergency (ER) | payer OTHER, SELFPAY ==
--- NOTE | ~2021-08-27 | XR_ITS ---
EXAMINATION: XR abdomen/kub 1V DATE: 08/27/2021 14:13 INDICATION: Right-sided mid back pain. TECHNIQUE: A supine view of the abdomen on 2 radiographs was obtained. COMPARISON: CT abdomen and pelvis 05/29/2013 FINDINGS: There are no dilated loops of bowel. There is a moderate volume of stool in the colon. Ther e are phleboliths in the pelvis. IMPRESSION: 1. Normal bowel gas pattern. Reviewed, dictated and finalized at location A.
[2021-08-27 13:42] VITALS: BP 152/90; PULSE 98; RESP 20; TEMP 36.9; O2SAT 100
--- NOTE | 2021-08-27 13:50 | ED.FEMALEGU ---
HPI - Female Genitourinary General Chief complaint: Back Pain/Injury Stated complaint: kidney pain Time Seen by Provider: 08/27/21 13:52 Source: patient and RN notes reviewed Mode of arrival: ambulatory Limitations: no limitations History of Present Illness HPI Narrative: 36-year-old female presents with concern for right flank pain. Reports symptoms started 3 days ago and have been progressively worsening. Reports today she has had 3 episodes of vomiting. She denies dysuria, frequency, urgency, abdominal pain, constipation or diarrhea. She denies injury or trauma. She reports she has been working on her feet a lot. She denies perianal anesthesia, weakness in any extremity, loss of bowel or bladder function. MD elicited complaint: flank pain Related Data Home Medications Medication Instructions Recorded Confirmed fluoxetine 20 mg PO BID 05/30/20 08/27/21 albuterol 90 mcg INHALATION Q4H PRN 03/28/21 08/27/21 alprazolam 1 mg PO TID 03/28/21 08/27/21 omeprazole 20 mg PO DAILY 03/28/21 08/27/21 Allergies Allergy/AdvReac Type Severity Reaction Status Date / Time monosodium glutamate Allergy Severe Anaphylactic Verified 08/27/21 13:45 Shock peppermint Allergy Severe Anaphylactic Verified 08/27/21 13:45 Shock Penicillins Allergy Intermediate Anaphylactic Verified 08/27/21 13:45 Shock eucalyptus Allergy Anaphylactic Verified 08/27/21 13:45 Shock METOCLOPRAMIDE HCL Allergy Mild Muscle Uncoded 08/27/21 13:45 Spasms AMOXICILLIN TRIHYDRATE Allergy Unknown Unknown Uncoded 08/27/21 13:45 Review of Systems Review of Systems: CONSTITUTIONAL: Denies malaise, chills, sweats, or fever. CARDIOVASCULAR: Denies chest pain, palpitations, or edema. RESPIRATORY: Denies cough or dyspnea. GASTROINTESTINAL: Denies abdominal pain, nausea, vomiting, diarrhea GENITOURINARY: Denies dysuria, frequency, urgency, suprapubic pressure, hematuria. Reports right flank pain SKIN: Denies rash or itching. MUSCULOSKELETAL: Denies myalgia. All systems reviewed & are unremarkable except as noted in HPI and below PMFSH Past Medical History Medical History Anxiety and depression Asthma GERD (gastroesophageal reflux disease) IBS (irritable bowel syndrome) Insomnia Migraines Staph infection Surgical History Surgical History No significant past surgical history Family History Family History Father Acute myocardial infarction Heart disease Mother Diabetes mellitus Social History Social History Smoking status: Never smoker Tobacco type: cigarettes Second hand tobacco smoke exposure: No Alcohol intake: current Substance use: never Gender identity (if verbalized by the patient): Female Sexual Orientation (if Verbalized by the Patient): Straight or Heterosexual Comments At time of signature, agree with nursing past medical, surgical, social and family history. There is no relevant family history pertinent to the presenting complaint Exam Narrative: GENERAL: Well-appearing, well-nourished, and in no acute distress. HEAD: Normocephalic. EYES: PERRLA, conjunctivae clear. NECK: Supple. No lymphadenopathy CHEST: Clear to auscultation. No respiratory distress. HEART: Regular rate and rhythm. ABDOMEN: Soft, nontender upon palpation, nondistended, normal active bowel sounds, no palpable or pulsatile masses, no guarding. No CVA tenderness SKIN: Warm, dry, no rash. NEURO: Alert and oriented x3. PSYCH: Normal mood and affect Course Course Emergency Course: Discussed x-ray findings with patient. Discussed possible diagnosis of kidney stone that is not visible on x-ray, pyelonephritis or urinary tract infection. Patient reports she typically does not have symptoms of urinary tract in
[2021-08-27 13:57] VITALS: BP 152/90; PULSE 98; RESP 20; TEMP 36.9; O2SAT 100
== END 2021-08-27 14:26 | disposition home or self-care (01) ==
PROVIDERS: Emergency Provider Nurse Practitioner
DX: R10.9 Unspecified abdominal pain (principal); J45.909 Unspecified asthma, uncomplicated; K21.9 Gastro-esophageal reflux disease without esophagitis; F41.9 Anxiety disorder, unspecified; F32.A Depression, unspecified; Z86.19 Personal history of other infectious and parasitic diseases
CPT/HCPCS: 74018; 81003; 87086; 99213; G0463

== ENCOUNTER 2021-10-15 18:57 | Emergency (ER) | payer OTHER, SELFPAY ==
[2021-10-15 19:02] VITALS: BP 136/94; PULSE 108; RESP 18; TEMP 37; O2SAT 100
--- NOTE | 2021-10-15 19:12 | ED.FEMALEGU ---
HPI - Female Genitourinary General Chief complaint: Urogenital-Female Stated complaint: Urinary Problem Time Seen by Provider: 10/15/21 19:22 Source: patient and RN notes reviewed Mode of arrival: ambulatory Limitations: no limitations History of Present Illness HPI Narrative: 36-year-old female presents with concern for urinary tract infection. She reports history of frequent urinary tract infections, her last one was approximately 6 months ago. She reports dysuria that started today. She reports a unique symptom of urinary tract infection for her is that when she is urinating she has an orgasm. Reports that symptoms started today. She denies fever, bodies, chills, sweats, back pain, abdominal pain, nausea, vomiting. MD elicited complaint: UTI Related Data Home Medications Medication Instructions Recorded Confirmed fluoxetine 40 mg capsule 20 mg PO BID 05/30/20 10/15/21 alprazolam 1 mg tablet 1 mg PO TID 03/28/21 10/15/21 omeprazole 20 mg tablet,delayed 20 mg PO DAILY 03/28/21 10/15/21 release drospirenone 3 mg-ethinyl 1 tablet PO DAILY 10/15/21 10/15/21 estradiol 0.03 mg tablet (Karol) zolpidem 10 mg tablet 1 tablet PO DAILY 10/15/21 10/15/21 Allergies Allergy/AdvReac Type Severity Reaction Status Date / Time eucalyptus Allergy Severe Anaphylactic Verified 10/15/21 19:18 Shock monosodium glutamate Allergy Severe Anaphylactic Verified 10/15/21 19:18 Shock Penicillins Allergy Severe Anaphylactic Verified 10/15/21 19:18 Shock peppermint Allergy Severe Anaphylactic Verified 10/15/21 19:18 Shock METOCLOPRAMIDE HCL Allergy Mild Muscle Uncoded 10/15/21 19:18 Spasms AMOXICILLIN TRIHYDRATE Allergy Unknown Unknown Uncoded 10/15/21 19:18 Review of Systems Review of Systems: CONSTITUTIONAL: Denies malaise, chills, sweats, or fever. CARDIOVASCULAR: Denies chest pain, palpitations, or edema. RESPIRATORY: Denies cough or dyspnea. GASTROINTESTINAL: Denies abdominal pain, nausea, vomiting, diarrhea GENITOURINARY: Reports dysuria. Denies frequency, urgency, suprapubic pressure. Denies flank pain or hematuria. SKIN: Denies rash or itching. MUSCULOSKELETAL: Denies back pain or myalgia. All systems reviewed & are unremarkable except as noted in HPI and below PMFSH Past Medical History Medical History Anxiety and depression Asthma GERD (gastroesophageal reflux disease) IBS (irritable bowel syndrome) Insomnia Migraines Staph infection Surgical History Surgical History No significant past surgical history Family History Family History Father Acute myocardial infarction Heart disease Mother Diabetes mellitus Social History Social History Smoking status: Never smoker Tobacco type: cigarettes Second hand tobacco smoke exposure: No Alcohol intake: current Substance use: never Gender identity (if verbalized by the patient): Female Sexual Orientation (if Verbalized by the Patient): Straight or Heterosexual Comments At time of signature, agree with nursing past medical, surgical, social and family history. There is no relevant family history pertinent to the presenting complaint Exam Narrative: GENERAL: Well-appearing, well-nourished, and in no acute distress. HEAD: Normocephalic. EYES: PERRLA, conjunctivae clear. NECK: Supple. No lymphadenopathy CHEST: Clear to auscultation. No respiratory distress. HEART: Regular rate and rhythm. ABDOMEN: Soft, nontender upon palpation, nondistended, normal active bowel sounds, no palpable or pulsatile masses, no guarding. No CVA tenderness SKIN: Warm, dry, no rash. NEURO: Alert and oriented x3. PSYCH: Normal mood and affect Course Course Emergency Course: Patient is aware of diagnosis, understands a
== END 2021-10-15 19:30 | disposition home or self-care (01) ==
PROVIDERS: Emergency Provider Nurse Practitioner
DX: R35.0 Frequency of micturition (principal); R30.0 Dysuria; F41.9 Anxiety disorder, unspecified; F32.A Depression, unspecified; K21.9 Gastro-esophageal reflux disease without esophagitis; Z86.19 Personal history of other infectious and parasitic diseases
CPT/HCPCS: 81003; 87077; 87086; 87186; 99213; G0463

== ENCOUNTER 2022-04-27 16:52 | Emergency (ER) | payer BC, OTHER, SELFPAY ==
[2022-04-27 16:56] VITALS: BP 104/69; PULSE 140; RESP 16; TEMP 36.7; O2SAT 99
--- NOTE | 2022-04-27 17:18 | ED.FEMALEGU ---
HPI - Female Genitourinary General Chief complaint: Urogenital-Female Stated complaint: kidney infection Time Seen by Provider: 04/27/22 17:34 Source: patient and RN notes reviewed Mode of arrival: ambulatory Limitations: no limitations History of Present Illness HPI Narrative: 36-year-old female presents with concern for right flank pain. She reports history of urinary tract infections and kidney infections. She denies dysuria, frequency, urgency, hematuria. Reports symptoms started 4-5 days ago MD elicited complaint: UTI Related Data Home Medications Medication Instructions Recorded Confirmed alprazolam 1 mg tablet 1 mg PO TID 03/28/21 10/15/21 omeprazole 20 mg tablet,delayed 20 mg PO DAILY 03/28/21 10/15/21 release drospirenone 3 mg-ethinyl 1 tablet PO DAILY 10/15/21 10/15/21 estradiol 0.03 mg tablet (Karol) zolpidem 10 mg tablet 1 tablet PO DAILY 10/15/21 10/15/21 Allergies Allergy/AdvReac Type Severity Reaction Status Date / Time eucalyptus Allergy Severe Anaphylactic Verified 10/15/21 19:18 Shock monosodium glutamate Allergy Severe Anaphylactic Verified 10/15/21 19:18 Shock Penicillins Allergy Severe Anaphylactic Verified 10/15/21 19:18 Shock peppermint Allergy Severe Anaphylactic Verified 10/15/21 19:18 Shock METOCLOPRAMIDE HCL Allergy Mild Muscle Uncoded 10/15/21 19:18 Spasms AMOXICILLIN TRIHYDRATE Allergy Unknown Unknown Uncoded 10/15/21 19:18 Review of Systems Review of Systems: CONSTITUTIONAL: Denies malaise, chills, sweats, or fever. CARDIOVASCULAR: Denies chest pain, palpitations, or edema. RESPIRATORY: Denies cough or dyspnea. GASTROINTESTINAL: Denies abdominal pain, nausea, vomiting, diarrhea GENITOURINARY: Denies dysuria, frequency, urgency, suprapubic pressure, hematuria. Reports bilateral flank pain, worse on the right SKIN: Denies rash or itching. MUSCULOSKELETAL: Denies back pain or myalgia. All systems reviewed & are unremarkable except as noted in HPI and below PMFSH Past Medical History Medical History Anxiety and depression Asthma GERD (gastroesophageal reflux disease) IBS (irritable bowel syndrome) Insomnia Migraines Staph infection Surgical History Surgical History No significant past surgical history Family History Family History Father Acute myocardial infarction Heart disease Mother Diabetes mellitus Social History Social History Smoking status: Never smoker Tobacco type: cigarettes Second hand tobacco smoke exposure: No Alcohol intake: current Substance use: never Gender identity (if verbalized by the patient): Female Sexual Orientation (if Verbalized by the Patient): Straight or Heterosexual Comments At time of signature, agree with nursing past medical, surgical, social and family history. There is no relevant family history pertinent to the presenting complaint Exam Narrative: GENERAL: Well-appearing, well-nourished, and in no acute distress. HEAD: Normocephalic. EYES: PERRLA, conjunctivae clear. NECK: Supple. No lymphadenopathy CHEST: Clear to auscultation. No respiratory distress. HEART: Regular rate and rhythm. ABDOMEN: Soft, nontender upon palpation, nondistended, normal active bowel sounds, no palpable or pulsatile masses, no guarding. Right CVA tenderness SKIN: Warm, dry, no rash. NEURO: Alert and oriented x3. PSYCH: Normal mood and affect Course Course Emergency Course: Patient requested Diflucan for yeast infection that she gets when she takes antibiotics.? Discussed that Diflucan interacts with alprazolam.? Patient reports she takes alprazolam only as needed, she understands she cannot take alprazolam while taking Diflucan. Patient is aware of diagnosis, understands
== END 2022-04-27 18:33 | disposition home or self-care (01) ==
PROVIDERS: Emergency Provider Nurse Practitioner; PCP Physician Assistant
DX: R10.9 Unspecified abdominal pain (principal); J45.909 Unspecified asthma, uncomplicated; F41.9 Anxiety disorder, unspecified; F32.9 Major depressive disorder, single episode, unspecified
CPT/HCPCS: 81003; 99213; G0463